=== PATIENT | female | born 1995 | race Caucasian/White ===

== ENCOUNTER 2017-02-18 15:15 | Outpatient (CLI) | payer OTHER ==
[~2017-02-18] VITALS: Ht 157.5 cm; Wt 92.7 kg
[2017-02-18 15:12] VITALS: BP 133/73; PULSE 74; RESP 16; Ht 157.5 cm; Wt 92.7 kg
[2017-02-18] MEDS ORDERED: CIPR500T4 PO (15:19)
[2017-02-18] MEDS ORDERED: ATOR80TA75 PO (15:19)
[2017-02-18] MEDS ORDERED: ASPI-664 PO (15:19)
--- NOTE | 2017-02-18 15:48 | PN ---
Date/Time of Note Date/Time of Note DATE: 02/18/17 TIME: 15:10 Outpatient Progress Note Chief Complaint CVA/left-sided weakness/hyperlipidemia HPI CVA/patient has ischemic CVA in 2016, patient has been on medication, Left-sided weakness/patient had left sided weakness, patient was recently hospitalized, patient did have a headache, lightheadedness, improved, patient does not have any weakness at present, Hyperlipidemia/no xanthoma, on medication, no side effect of medication, Review of Systems Const: No Fever, no chills, no Wt. loss, no Fatigue, normal appetite, no diaphoresis. Eyes: No pain, no discharge, no redness, no visual change, no foreign body. ENT: No pain, no bleeding, no congestion, no sore throat, no dysphagia, no discharge or rhinitis. Lymph: No adenopathy, no tender nodes, no lymphedema. Resp: No SOB, no cough, no sputum, no wheezing, no chest pain. CV: No chest pain, no palpitaions, no AUGUSTIN, no PND, no edema. GI: Normal appetite, no pain, no nausea, no vomiting, no diarrhea, no blood, no constipation. : No frequency, no urgency, no dysuria, no hematuria, no flank pain, no discharge, no bleeding. Musc: No bone/joint pain, no back pain, no neck pain, no knee pain, no restricted ROM. Skin: No rash, no skin lesions, no erythema, no laceration, no bruising, no pruritus. Neuro: No RAMIREZ, no dizziness, no syncope, no seizure, no focal-weakness. Patient was initially hospitalized with left-sided weakness, no motor weakness, Endo: No polyuria, no polydypsia, no dry-skin, no temp-intolerance. Psych: No hallucinations, no depression, no anxiety, no suicidal ideation. Ext: No edema, no pain, no ulcer, no weakness. Physical Exam Vital Signs Date Time Temp Pulse Resp B/P Pulse Ox O2 Delivery O2 Flow Rate FiO2 02/18/17 15:12 98.2 74 16 133/73 96 Room Air General Appearance: A [A 21] year-old [ female] [who appears well-developed, well-nourished, in no acute distress.] HEENT: [Head normocephalic, atraumatic. Pupils equal, round, reactive to light and accommodate. Sclerae are no jaundice. Nasal turbinates pink without erythema or nasal discharge. Mucous membranes pink and moist without lesions. Oropharynx clear without any exudate or discharge.] NECK: [Supple. Trachea midline, No thyromegaly, No cervical lymphadenopathy, No mass, No carotid bruits, No JVD, Carotid pulses 2+ bilaterally.] PULMONARY: [Clear to auscultaion bilaterally, No retractions, Chest expansion symmetric bilaterally, no rales, no ronchi, no dulness on percussion.] CARDIAC: [Normal SI and S2, Regular rate and rythm, no murmur, gallop, or rub.] GASTROINTESTINAL: [Abdomen is soft, non-tender, Non Rigid, No distention, Positive bowel sounds x4 quadrants, Liver normal.] SKIN: [Warm, dry, no rash, no bruise, no echmosis.] EXTREMITIES: [Bilateral lower extremities normal, no edema, no phlabitus, pulse palpable, no contracture.] MUSCULOSKELETAL: [Spine Normal, Non-tender, Normal range of motion, No swelling , no deformity, no clubbing, or cyanosis, the patient has no edema to bilateral lower extremities, dorsalis pedis pulses palpable bilaterally.] NEUROLOGIC: [The patient is awake, alert, oriented, responding to yes/no questions appropriately, moving all extremities, cranial nerve intact, normal strenght, normal power, normal coordination, normal gait.] Allergies Coded Allergies: No Known Drug Allergies (Verified Allergy, Unknown, 02/18/17) PMH CVA/hyperlipidemia Social Hx No more smoking at present, no drinking, Family Hx Noncontributory Assessment/Plan Impression CVA/left-sided weakness improved/hyperlipidemia small lipoma on forehead, Plan Patient has all her medication, patient is taking medication, at present patient does not have any weakness, patient ambulating well, no headache or dizziness, no local focal weakness, patient already on medication, Patient advised to continue to increase activity slowly, patient can return to work, Patient advised to follow with the primary care physician, Patient has a lipoma, patient wanted to be removed here, explained that patient need to go to primary care physician get authorization and then remove it by surgeon, Medications Home Meds Reported Medications Atorvastatin* (Atorvastatin*) 80 Mg Tablet, 80 MG PO QHS, #30 TAB 02/18/17 Aspirin (Low Dose Aspirin) 81 Mg Tablet.dr, 81 MG PO DAILY, #30 TAB 02/18/17 Ciprofloxacin Hcl* (Ciprofloxacin Hcl*) 500 Mg Tablet, 500 MG PO BID, #14 TAB 02/18/17 SUSAN BOBBY MD Feb 18, 2017 15:20
== END 2017-02-18 17:00 | disposition home or self-care (01) ==
LOC: DCC 15:15
PROVIDERS: ATTEND Internal Medicine
DX: D17.0 Benign lipomatous neoplasm of skin and subcutaneous tissue of head, face and neck (principal); R53.1 Weakness; E78.5 Hyperlipidemia, unspecified; Z87.820 Personal history of traumatic brain injury

== ENCOUNTER 2017-03-06 11:48 | Outpatient (CLI) | payer OTHER ==
[~2017-03-06] VITALS: Ht 157.5 cm; Wt 93.2 kg
[~2017-03-06 11:48] MED LIST: ASPI-664 PO; ATOR80TA75 PO; CIPR500T4 PO
[2017-03-06 11:53] VITALS: BP 135/65; PULSE 83; RESP 16; Ht 157.5 cm; Wt 93.2 kg
--- NOTE | 2017-03-06 12:31 | PN ---
Date/Time of Note Date/Time of Note DATE: 03/06/17 TIME: 12:28 Outpatient Progress Note Chief Complaint CVA/hyperlipidemia HPI CVA s/patient was recently hospitalized with left-sided weakness, patient much more improved, patient able to walk, talk, able to swallow, almost no residual effect, Hyperlipidemia/no xanthoma, on Lipitor 80 mg p.o. daily, no side effect, normocephalic, no liver problem, no jaundice, Review of Systems Const: No Fever, no chills, no Wt. loss, no Fatigue, normal appetite, no diaphoresis. Eyes: No pain, no discharge, no redness, no visual change, no foreign body. ENT: No pain, no bleeding, no congestion, no sore throat, no dysphagia, no discharge or rhinitis. Lymph: No adenopathy, no tender nodes, no lymphedema. Resp: No SOB, no cough, no sputum, no wheezing, no chest pain. CV: No chest pain, no palpitaions, no AUGUSTIN, no PND, no edema. GI: Normal appetite, no pain, no nausea, no vomiting, no diarrhea, no blood, no constipation. : No frequency, no urgency, no dysuria, no hematuria, no flank pain, no discharge, no bleeding. Musc: No bone/joint pain, no back pain, no neck pain, no knee pain, no restricted ROM. Skin: No rash, no skin lesions, no erythema, no laceration, no bruising, no pruritus. Neuro: No RAMIREZ, no dizziness, no syncope, no seizure, no focal-weakness. Endo: No polyuria, no polydypsia, no dry-skin, no temp-intolerance. Psych: No hallucinations, no depression, no anxiety, no suicidal ideation. Ext: No edema, no pain, no ulcer, no weakness. Physical Exam Vital Signs Date Time Temp Pulse Resp B/P Pulse Ox O2 Delivery O2 Flow Rate FiO2 03/06/17 11:53 98.0 83 16 135/65 96 Room Air General Appearance: A 21 year-old female who appears well-developed, well- nourished, in no acute distress. HEENT: Head normocephalic, atraumatic. Pupils equal, round, reactive to light and accommodate. Sclerae are no jaundice. Nasal turbinates pink without erythema or nasal discharge. Mucous membranes pink and moist without lesions. Oropharynx clear without any exudate or discharge. NECK: Supple. Trachea midline, No thyromegaly, No cervical lymphadenopathy, No mass, No carotid bruits, No JVD, Carotid pulses 2+ bilaterally. PULMONARY: Clear to auscultaion bilaterally, No retractions, Chest expansion symmetric bilaterally, no rales, no ronchi, no dulness on percussion. CARDIAC: Normal SI and S2, Regular rate and rythm, no murmur, gallop, or rub. GASTROINTESTINAL: Abdomen is soft, non-tender, Non Rigid, No distention, Positive bowel sounds x4 quadrants, Liver normal. SKIN: Warm, dry, no rash, no bruise, no echmosis. EXTREMITIES: Bilateral lower extremities normal, no edema, no phlabitus, pulse palpable, no contracture. MUSCULOSKELETAL: Spine Normal, Non-tender, Normal range of motion, No swelling, no deformity, no clubbing, or cyanosis, the patient has no edema to bilateral lower extremities, dorsalis pedis pulses palpable bilaterally. NEUROLOGIC: The patient is awake, alert, oriented, responding to yes/no questions appropriately, moving all extremities, cranial nerve intact, normal strenght, normal power, normal coordination, normal gait. Allergies Coded Allergies: No Known Drug Allergies (Verified Allergy, Unknown, 02/18/17) PMH No change Social Hx No change Family Hx No change Assessment/Plan Impression CVA/hyperlipidemia/ Plan Patient was recently hospitalized with acute CVA, patient's left side totally normal, no residual effect found, patient ambulating well, eating well, no dysphagia, no cough, no unsteady gait, patient back to work, Patient has no aspirin or atorvastatin, Aspirin 81 mg #100 Atorvastatin 80 mg #30 Patient advised to follow with the primary care physician, and also patient advised to get a lipid panel every 3 months, and liver panel every 3 months, as patient is on significantly high dose of atorvastatin, risk of liver damage explained to the patient, patient education done, Medications Home Meds Reported Medications Atorvastatin* (Atorvastatin*) 80 Mg Tablet, 80 MG PO QHS, #30 TAB 02/18/17 Aspirin (Low Dose Aspirin) 81 Mg Tablet.dr, 81 MG PO DAILY, #30 TAB 02/18/17 Discontinued Reported Medications Ciprofloxacin Hcl* (Ciprofloxacin Hcl*) 500 Mg Tablet, 500 MG PO BID, #14 TAB 02/18/17 SUSAN BOBBY MD Mar 06, 2017 12:31
== END 2017-03-06 16:24 | disposition home or self-care (01) ==
LOC: DCC 11:48
PROVIDERS: ATTEND Internal Medicine
DX: I63.9 Cerebral infarction, unspecified (principal); E78.5 Hyperlipidemia, unspecified